=== PATIENT | female | born 1975 | race Caucasian/White ===

== ENCOUNTER 2023-10-16 01:21 | Emergency (ER) | payer MEDICAID ==
[~2023-10-16] VITALS: Ht 157.5 cm; Wt 109.1 kg
[~2023-10-16 01:21] MED LIST: [UNRECOGNIZED DRUG - REMARK]
[2023-10-16 01:29] VITALS: TEMP 98.7
[2023-10-16] MEDS: KETOROLAC TROMETHAMINE 30 MG/ML VIAL IM ONE (02:48)
[2023-10-16 03:14] VITALS: BP 133/83; PULSE 84; RESP 16
== END 2023-10-16 03:16 | disposition home or self-care (01) ==
LOC: EMS 01:21
DX: S46.211A Strain of muscle, fascia and tendon of other parts of biceps, right arm, initial encounter (principal); E11.9 Type 2 diabetes mellitus without complications; X58.XXXA Exposure to other specified factors, initial encounter; Y93.89 Activity, other specified; Y92.89 Other specified places as the place of occurrence of the external cause; Y99.8 Other external cause status
CPT/HCPCS: 99283; 29105; 96372; J1885

== ENCOUNTER 2024-01-08 19:52 | Emergency (ER) | payer MEDICAID ==
[~2024-01-08] VITALS: Ht 157.5 cm; Wt 107.3 kg
[2024-01-08 20:01] VITALS: TEMP 98.3
[2024-01-08] MEDS ORDERED: IBUP-1492 PO (23:10)
[2024-01-08] MEDS ORDERED: SULF-261 PO (23:10)
[2024-01-08] MEDS: KETOROLAC TROMETHAMINE 30 MG/ML VIAL IM ONE (23:33)
[2024-01-08] MEDS: LIDOCAINE/PF 1% 2 ML VIAL IM ONE (23:33)
[2024-01-08] MEDS: CefTRIAXone SODIUM 1 GM/VIAL IM ONE (23:33)
[2024-01-09 00:24] VITALS: BP 147/86; PULSE 88; RESP 15
== END 2024-01-09 00:26 | disposition home or self-care (01) ==
LOC: EMS 20:02
DX: H66.93 Otitis media, unspecified, bilateral (principal); E11.9 Type 2 diabetes mellitus without complications
CPT/HCPCS: 99284; 82962; 96372; J0696; J1885; J3490